=== PATIENT | female | born 1940 | race Caucasian/White ===

== ENCOUNTER 2017-12-25 11:47 | Emergency (ER) | payer MEDICARE, BC ==
[2017-12-25] MEDS ORDERED: traMADol HCl 50 MG TAB ONE (12:06)
[2017-12-25] MEDS ORDERED: Ibuprofen 800 MG TAB ONE (12:57)
--- NOTE | 2017-12-25 14:27 | ULT ---
VENOUS DOPPLER ULTRASOUND OF THE RIGHT LOWER EXTREMITY: Date: 12/25/17 HISTORY: Right leg edema and pain. TECHNIQUE: Read scale ultrasound with color flow and spectral Doppler imaging of the deep venous system of the r ight lower extremity is performed. FINDINGS: There is good flow, compression, and augmentation noted in the right common femoral, femoral, deep fe moral, popliteal, posterior tibial, and greater saphenous veins. IMPRESSION: No evidence of deep venous thrombosis in the right lower extremity. POS: [facility]
== END 2017-12-25 13:15 | disposition home or self-care (01) ==
LOC: ERS 11:47
DX: M79.661 Pain in right lower leg (principal); M51.36 Other intervertebral disc degeneration, lumbar region; L40.50 Arthropathic psoriasis, unspecified; G20 Parkinson's disease; G30.9 Alzheimer's disease, unspecified; I50.9 Heart failure, unspecified; E03.9 Hypothyroidism, unspecified; E78.5 Hyperlipidemia, unspecified; F31.9 Bipolar disorder, unspecified; Z79.899 Other long term (current) drug therapy

== ENCOUNTER 2018-03-15 10:14 | Observation (INO) | payer MEDICARE, BC ==
[2018-03-15] MEDS ORDERED: ISOVUE-370 76%-LOCM 1 ML ONE (10:21)
[2018-03-15] MEDS ORDERED: Ondansetron PF 4 MG/2 ML Vial ONE (11:26)
[2018-03-15 11:27] LABS: #Lymphocytes 0.8 thou/uL (1.20-3.40); #Monocytes 0.6 thou/uL (0.11-0.59); #Neutrophils 15.2 thou/uL (1.40-6.50); %Basophils 0.1 % (0.0-1.0); %Eosinophils 0.2 % (0.0-10.0); %Lymphocytes 4.6 % (21.0-51.0); %Monocytes 3.6 % (0.0-10.0); %Neutrophils 91.5 % (42.0-75.0); Hemoglobin 13.8 g/dL (12.0-16.0); Mean Corpuscular HGB CONC 30.4 g/dL (32.0-36.0); Mean Corpuscular Hemoglobin 27.1 pg (27.0-31.0); Mean Corpuscular Volume 89.2 fL (78.0-98.0); Mean Platelet Volume 7.4 fL (7.4-10.4); Platelet Count 304 thou/uL (130-400); RBC Distribution Width 14.5 % (11.5-14.5); White Blood Cell (WBC) Count 16.6 thou/uL (4.8-10.8)
--- NOTE | 2018-03-15 11:31 | RAD ---
PORTABLE CHEST 1 VIEW: Date: 03/15/18 Time: 1104 hours HISTORY: Weakness. FINDINGS: Comparison made with exam of 08/27/12. The heart size is normal. There is continued elevation of the right hemidiaphragm. No lobar consolida tion, pneumothoraces, or pleural effusions are seen. IMPRESSION: No acute process. POS: [facility]
[2018-03-15 11:35] LABS: INR-International Normal Ratio 0.9; PTT 37.7 SEC (22.9-36.1); Prothrombin Time 12.6 SEC (12.0-14.7)
[2018-03-15 11:52] LABS: ALT (SGPT) 20 U/L (8-55); AST (SGOT) 14 U/L (5-34); Albumin 4.2 g/dL (3.4-4.8); Alkaline Phosphatase 151 U/L (40-150); Anion Gap 14 mmol/L (10-20); BUN (Urea Nitrogen) 28 mg/dL (9.8-20.1); Bilirubin, Total 0.4 mg/dL (0.2-1.2); CK (CPK) 22 U/L (29-168); Calc. Creatinine Clearance 0 mL/min (70-130); Calcium 10.5 mg/dL (7.8-10.44); Carbon Dioxide 25 mmol/L (23-31); Chloride 105 mmol/L (98-107); Estimated GFR-MDRD 35; Globulin 2.9 g/dL (2.4-3.5); Glucose 114 mg/dL (83-110); Lipase 21 U/L (8-78); Potassium 4.5 mmol/L (3.5-5.1); Protein, Total 7.1 g/dL (6.0-8.3); Sodium 139 mmol/L (136-145)
--- NOTE | 2018-03-15 12:23 | CT ---
CT ABDOMEN AND PELVIS WITH IV CONTRAST: History: Abdominal pain. Vomiting. Comparison: 06-01-09 FINDINGS: Mild scarring at the lung bases. Gallbladder is surgically absent. Liver is diffusely hypodense. Calc ified granulomata within the spleen. Calcification within the arterial structures. Retroaortic left r enal vein. Degenerative changes lumbar spine. Urinary bladder is decompressed. Lack of oral contrast limits evaluation of the bowel. No evidence of obstruction or inflammation. IMPRESSION: 1. No evidence of bowel obstruction or other acute abnormalities. 2. Atherosclerosis. 3. Hepatosteatosis. 4. Status post cholecystectomy. POS: [facility]
[2018-03-15] MEDS ORDERED: Zolpidem Tartrate 5 MG TAB PO PRN (13:22)
[2018-03-15] MEDS ORDERED: Ondansetron PF 4 MG/2 ML Vial IVP PRN (13:22)
[2018-03-15 14:20] LABS: Bilirubin Negative (Negative); Blood, Urine Negative (Negative); Clarity CLEAR (Clear); Glucose, Urine (Dipstick) Negative (Negative); Leukocyte Negative (Negative); Nitrite Negative (Negative); Protein, Urine (Dipstick) Negative (Neg-Trace); Specific Gravity, Urine 1.027 (1.002-1.036); Urobilinogen 0.2 mg/dL (0.2-1.0)
--- NOTE | 2018-03-15 14:27 | HP ---
PRIMARY CARE PROVIDER: Milo Tracey DO HISTORY OF PRESENT ILLNESS: Referred to [facility] by [facility]. The patient woke up this morning, weak, and disoriented. Her speech was slurred. She had nausea and vomiting 2 times. It was described as a brown color. She went to the bathroom, was too weak to get off the commode by herself. She had no diarrhea. No bowel movement at all. No abdominal pain. She was a bit lightheaded with the present illness. She presented at the emergency room for evaluation PAST MEDICAL HISTORY: Parkinson syndrome, hypothyroidism, bipolar syndrome, and psoriatic arthritis. MEDICATIONS: 1. [place] carbonate 300 mg twice a day. 2. Memantine 10 mg a day. 3. Levothyroxine 150 mcg a day. 4. Selegiline 5 mg a day. 5. Donepezil 10 mg a day. 6. Sinemet 25/100 three times a day. ALLERGIES: NO MEDICAL ALLERGIES. PAST SURGICAL HISTORY: Cholecystectomy and hysterectomy. FAMILY HISTORY: She had diabetes in the grandchild and niece. SOCIAL HISTORY: The patient is . Daughter is at bedside, next of kin is surrogate decision maker. The patient states she is DNR. Daughter agrees. She does not smoke or drink alcohol. REVIEW OF SYSTEMS: GENERAL: No fevers, sweats, or chills. No fainting. EYES: No double vision, blurred vision, or flashing lights. EAR, NOSE, AND THROAT: No nose bleeding. No trouble swallowing. CHEST: No chest pain or shortness of breath. No cough, wheezing, or asthma. GASTROINTESTINAL: See present illness. GENITOURINARY: She is incontinent, wears Depend. MUSCULOSKELETAL: No swelling or pain in her legs. NEUROLOGICAL: No strokes, seizures, or focal weakness. PSYCHIATRIC: She has bipolar syndrome, controlled on medications. SKIN: No bruising, bleeding, or rash. HEME/LYMPH: No tender or swollen lymph nodes in the axilla, inguinal, cervical area. PHYSICAL EXAMINATION: VITAL SIGNS: Initially, blood pressure 182/79, pulse 117, respirations 19, temperature 98; currently, blood pressure 139/77, pulse 82, and respirations 21. HEAD, EYES, EARS, NOSE, AND THROAT: Revealed pupils are equal, round, and reactive to light. Extraocular movements are intact. Sclerae white. Tympanic membranes clear. Nose is clear. Throat is clear. NECK: No jugular venous distention, adenopathy, or thyromegaly. CHEST: Clear to auscultation and percussion. HEART: Regular rate and rhythm. First and second heart sounds are clear. There are no murmurs or gallops. ABDOMEN: Soft. Bowel sounds are normal. There is no hepatosplenomegaly. No mass. No rebound or bruits. EXTREMITIES: Reveal no cyanosis, clubbing, or edema. PULSES: Carotid, radial, femoral, and dorsalis pedis pulses intact and symmetric. SKIN: Warm and dry without bruises or rash. HEME/LYMPH: No tender or swollen lymph nodes in the axilla, inguinal, and cervical area. NEUROLOGICAL: Cranial nerves 2 through 12 are intact. Moves all extremities. Sensations intact. IMAGING STUDIES: EKG; regular sinus rhythm, right bundle branch block, reviewed by myself. Chest x-ray, reviewed by myself, no cardiomegaly, CHF, or infiltrate. CT abdomen and pelvis, no acute abnormality. LABORATORY DATA: White count elevated at 16.6, hemoglobin 13.8, platelet count 304,000. Lytes balanced. BUN 28, creatinine 1.46, calcium 10.5, alkaline phosphatase 151, CK 21. ADMITTING DIAGNOSES: Nausea and vomiting, weakness, Parkinson's, bipolar syndrome, psoriatic arthritis, chronic kidney disease versus acute kidney injury. PLAN: IV fluids, antiemetics. Repeat CBC at 5 o'clock today and in the morning. Repeat basic metabolic profile tomorrow morning. Check lithium level. The patient will be admitted on an observation. Job ID: [id number]
[2018-03-15] MEDS ORDERED: Carbidopa/Levodopa 25-100 mg Tablet PO SCH (15:00)
[2018-03-15 17:23] LABS: #Eosinphils 0.1 thou/uL (0.0-0.7); #Lymphocytes 1.2 thou/uL (1.20-3.40); #Neutrophils 12.4 thou/uL (1.40-6.50); %Basophils 0.3 % (0.0-1.0); %Eosinophils 0.5 % (0.0-10.0); %Lymphocytes 8.1 % (21.0-51.0); %Monocytes 6.9 % (0.0-10.0); %Neutrophils 84.2 % (42.0-75.0); Hemoglobin 13.4 g/dL (12.0-16.0); Mean Corpuscular HGB CONC 31.2 g/dL (32.0-36.0); Mean Corpuscular Hemoglobin 27.9 pg (27.0-31.0); Mean Corpuscular Volume 89.5 fL (78.0-98.0); Mean Platelet Volume 7.6 fL (7.4-10.4); Platelet Count 288 thou/uL (130-400); RBC Distribution Width 14.4 % (11.5-14.5); White Blood Cell (WBC) Count 14.8 thou/uL (4.8-10.8)
[2018-03-15] MEDS: Sodium Chloride 0.9% 1,000 ML IV SCH (17:26)
[2018-03-15] MEDS: Carbidopa/Levodopa 10-100 mg Tablet PO SCH (20:19)
[2018-03-15] MEDS ORDERED: Donepezil HCl 10 MG TAB PO SCH (21:00)
[2018-03-15] MEDS ORDERED: Lithium Carbonate 150 MG CAP PO SCH (21:00)
[2018-03-16] MEDS: Sodium Chloride 0.9% 1,000 ML IV SCH ×2 (00:01→10:59)
[2018-03-16] MEDS: Acetaminophen 325 MG TAB PO PRN ×2 (00:01→09:01)
[2018-03-16 05:33] LABS: #Eosinphils 0.3 thou/uL (0.0-0.7); #Lymphocytes 2.1 thou/uL (1.20-3.40); #Monocytes 1.2 thou/uL (0.11-0.59); #Neutrophils 10.3 thou/uL (1.40-6.50); %Basophils 0.3 % (0.0-1.0); %Eosinophils 1.8 % (0.0-10.0); %Lymphocytes 15.4 % (21.0-51.0); %Monocytes 8.4 % (0.0-10.0); %Neutrophils 74.1 % (42.0-75.0); Hemoglobin 12.1 g/dL (12.0-16.0); Mean Corpuscular HGB CONC 31.7 g/dL (32.0-36.0); Mean Corpuscular Hemoglobin 28.8 pg (27.0-31.0); Mean Corpuscular Volume 90.8 fL (78.0-98.0); Mean Platelet Volume 7.4 fL (7.4-10.4); Platelet Count 262 thou/uL (130-400); RBC Distribution Width 14.5 % (11.5-14.5); White Blood Cell (WBC) Count 13.8 thou/uL (4.8-10.8)
[2018-03-16 05:50] LABS: Anion Gap 10 mmol/L (10-20); BUN (Urea Nitrogen) 23 mg/dL (9.8-20.1); Calc. Creatinine Clearance 52 mL/min (70-130); Calcium 9.2 mg/dL (7.8-10.44); Carbon Dioxide 23 mmol/L (23-31); Chloride 113 mmol/L (98-107); Estimated GFR-MDRD 43; Glucose 97 mg/dL (83-110); Potassium 4.4 mmol/L (3.5-5.1); Sodium 142 mmol/L (136-145)
[2018-03-16] MEDS ORDERED: Levothyroxine 150 MCG TAB PO SCH ×2 (06:00→09:00)
[2018-03-16] MEDS ORDERED: Aspirin 81 mg Enteric Coated Tablet PO SCH (09:00)
[2018-03-16] MEDS: Carbidopa/Levodopa 10-100 mg Tablet PO SCH (09:01)
--- NOTE | 2018-03-16 09:46 | PDOC.PN ---
- Subjective Encounter Start Date: 03/16/18 Encounter Start Time: 09:42 - Objective Resuscitation Status - Order Detail: 03/15/18 13:29 Resuscitation Status Routine Resuscitation Status: DNAR: NO Resuscitation Discussed with: confirmed with patiet and daughter, sedrick DIOP Reviewed: Yes Vital Signs & Weight: Vital Signs (12 hours) Temp Pulse Resp BP BP Pulse Ox 03/16/18 09:40 159/64 H 03/16/18 08:00 98.1 F 91 20 176/82 H 95 03/16/18 04:00 98.5 F 90 20 154/72 H 96 03/16/18 00:00 98.5 F 97 20 131/75 98 Weight Weight 186 lb 5 oz I&O: 03/15/18 03/16/18 03/17/18 06:59 06:59 06:59 Intake Total 240 Balance 240 Result Diagrams: 03/16/18 05:01 03/16/18 05:01 Dx/Plan - Plan * .
--- NOTE | 2018-03-16 10:33 | DIS ---
DATE OF ADMISSION: 03/15/2018 DATE OF DISCHARGE: 03/16/2018 TRANSFER OF CARE PRIMARY CARE PROVIDER: Dr. Bernardo Tracey. DISPOSITION: Discharged home. FINAL DIAGNOSES: 1. Nausea and vomiting, resolved. 2. Weakness, resolved. 3. Parkinson disease. 4. Chronic kidney disease stage 3. DISCHARGE MEDICATIONS: Same as her home medications. 1. Aspirin 81 mg a day. 2. Sinemet 10/100 three times a day. 3. Vitamin D 3000 units a day. 4. B12 of 1000 mcg a day. 5. Donepezil 10 mg a day. 6. Synthroid 150 mcg a day. 7. [place] carbonate 300 mg p.o. b.i.d. 8. Namenda 10 mg a day. 9. Selegiline 5 mg a day. ALLERGIES: NO KNOWN DRUG ALLERGIES. CODE STATUS: DNAR. PENDING AT TIME OF DISCHARGE: Nothing. HOSPITAL COURSE: The patient presented to the emergency room with nausea, vomiting, and profound weakness. She was referred to the [facility]. She was treated with IV fluids and antiemetics. She feels fine today. Her initial laboratory showed a white count of 16.6, is dropped to 13.8 this morning. No left shift. No neutrophilia. Hemoglobin 13.8 initially, 12.1 today. Creatinine was 1.46 with a BUN of 28 on admission, it has dropped to 1.21 with a BUN of 23. Her history includes chronic kidney disease stage 3, which she has had. Her abdomen is benign. Her vital signs are stable. She is desirous of going home. No consultations. No procedure. She has been asked to follow up with Dr. Tracey in 7 days. Job ID: [id number]
[2018-03-16 11:34] VITALS: BP 137/75; TEMP 97.9
== END 2018-03-16 14:53 | disposition home or self-care (01) ==
LOC: ERS 10:14 → T4-B 13:19
PROVIDERS: ADMIT Internal Medicine; ATTEND Internal Medicine
DX: R11.2 Nausea with vomiting, unspecified (principal); R53.1 Weakness; G20 Parkinson's disease; N18.3 Chronic kidney disease, stage 3 (moderate); E03.9 Hypothyroidism, unspecified; F31.9 Bipolar disorder, unspecified; L40.50 Arthropathic psoriasis, unspecified; I70.90 Unspecified atherosclerosis; Z66 Do not resuscitate; Z79.82 Long term (current) use of aspirin; Z79.899 Other long term (current) drug therapy
CPT/HCPCS: 51701; 71045; 74177; 80048; 80053; 80178; 81003; 82550; 83605; 83690; 84484 ×2; 85025 ×3; 85610; 85730; 86850; 86900; 86901; 93005; 96361 ×3; 96374; 99285; G0378 ×2; 36415; A4353; J2405; Q9966

== ENCOUNTER 2021-02-01 22:59 | Inpatient (IN) | payer MEDICARE, BC ==
[2021-02-02 00:23] LABS: #Basophils 0.1 thou/uL (0.0-0.2); #Eosinphils 0.6 thou/uL (0.0-0.7); #Lymphocytes 2.5 thou/uL (1.20-3.40); #Monocytes 1.8 thou/uL (0.11-0.59); #Neutrophils 13.8 thou/uL (1.40-6.50); %Basophils 0.4 % (0.0-1.0); %Eosinophils 3.2 % (0.0-10.0); %Lymphocytes 13.1 % (21.0-51.0); %Monocytes 9.5 % (0.0-10.0); %Neutrophils 73.7 % (42.0-75.0); Hemoglobin 11.3 g/dL (12.0-16.0); Mean Corpuscular HGB CONC 31.7 g/dL (32.0-36.0); Mean Corpuscular Hemoglobin 26.3 pg (27.0-31.0); Mean Corpuscular Volume 83.1 fL (78.0-98.0); Mean Platelet Volume 8.1 fL (7.4-10.4); Platelet Count 330 thou/uL (130-400); RBC Distribution Width 16.4 % (11.5-14.5); White Blood Cell (WBC) Count 18.7 thou/uL (4.8-10.8)
[2021-02-02 00:50] LABS: Bilirubin Negative (Negative); Blood, Urine Negative (Negative); Clarity Clear (Clear); Glucose, Urine (Dipstick) Normal (Negative); Ketone, Urine Negative (Negative); Leukocyte Negative Leu/uL (Negative); Nitrite Negative (Negative); Protein, Urine (Dipstick) Negative (Neg-Trace); Specific Gravity, Urine 1.009 (1.002-1.036); Urobilinogen Normal mg/dL (Less than 2)
[2021-02-02 01:51] LABS: ALT (SGPT) Less than 7 U/L (8-55); AST (SGOT) 10 U/L (5-34); Albumin 3.7 g/dL (3.4-4.8); Alkaline Phosphatase 156 U/L (40-110); Anion Gap 12 mmol/L (10-20); BUN (Urea Nitrogen) 20 mg/dL (9.8-20.1); Bilirubin, Total 0.2 mg/dL (0.2-1.2); Calc. Creatinine Clearance 0 mL/min (70-130); Carbon Dioxide 22 mmol/L (23-31); Chloride 107 mmol/L (98-107); Globulin 3.1 g/dL (2.4-3.5); Glucose 130 mg/dL (83-110); Potassium 4.2 mmol/L (3.5-5.1); Protein, Total 6.8 g/dL (5.8-8.1); Sodium 137 mmol/L (136-145)
[2021-02-02] MEDS ORDERED: Vancomycin 1 GM/200 ML BAG ONE (02:21)
[2021-02-02] MEDS ORDERED: diphenhydrAMINE 25 MG CAP ONE (02:21)
[2021-02-02] MEDS ORDERED: Clindamycin/D5W 300 MG in Premix Bag 1 BAG IVPB SCH (02:30)
[2021-02-02 04:01] VITALS: BMI 29.3
[2021-02-02 12:42] LABS: SARS-CoV-2 PCR by NAA Not Detected (NotDetected)
[2021-02-02] MEDS ORDERED: Ondansetron PF 4 MG/2 ML Vial IVP PRN (14:13)
[2021-02-02] MEDS: Carbidopa/Levodopa 25-100 mg Tablet PO SCH ×2 (17:16→20:05)
[2021-02-02] MEDS: Lithium Carbonate 150 MG CAP PO SCH (17:20)
[2021-02-02] MEDS: Sodium Chloride 0.9% 1,000 ML IV SCH (17:21)
[2021-02-02] MEDS: Donepezil HCl 10 MG TAB PO SCH (20:04)
[2021-02-02] MEDS ORDERED: Melatonin 3 MG TAB PO PRN (22:37)
[2021-02-03] MEDS: Sodium Chloride 0.9% 1,000 ML IV SCH ×3 (04:03→20:27)
[2021-02-03] MEDS: Levothyroxine Sodium 100 MCG TAB PO SCH (05:14)
[2021-02-03] MEDS: Liothyronine Sodium 25 MCG TAB PO SCH (05:35)
[2021-02-03 06:50] LABS: #Basophils 0.1 thou/uL (0.0-0.2); #Eosinphils 0.6 thou/uL (0.0-0.7); #Lymphocytes 2.5 thou/uL (1.20-3.40); #Monocytes 1.3 thou/uL (0.11-0.59); #Neutrophils 9.4 thou/uL (1.40-6.50); %Basophils 0.6 % (0.0-1.0); %Eosinophils 4.6 % (0.0-10.0); %Lymphocytes 17.9 % (21.0-51.0); Hemoglobin 11.1 g/dL (12.0-16.0); Mean Corpuscular HGB CONC 30.8 g/dL (32.0-36.0); Mean Corpuscular Hemoglobin 25.8 pg (27.0-31.0); Mean Corpuscular Volume 83.7 fL (78.0-98.0); Mean Platelet Volume 8.6 fL (7.4-10.4); Platelet Count 267 thou/uL (130-400); RBC Distribution Width 16.4 % (11.5-14.5); White Blood Cell (WBC) Count 13.9 thou/uL (4.8-10.8)
[2021-02-03 07:08] LABS: Anion Gap 10 mmol/L (10-20); BUN (Urea Nitrogen) 21 mg/dL (9.8-20.1); Calc. Creatinine Clearance 39 mL/min (70-130); Calcium 9.7 mg/dL (7.8-10.44); Carbon Dioxide 23 mmol/L (23-31); Chloride 111 mmol/L (98-107); Glucose 123 mg/dL (83-110); Potassium 4.4 mmol/L (3.5-5.1); Sodium 140 mmol/L (136-145)
[2021-02-03] MEDS: Lithium Carbonate 150 MG CAP PO SCH ×2 (10:04→17:24)
[2021-02-03] MEDS: Aspirin 81 mg Enteric Coated Tablet PO SCH (10:04)
[2021-02-03] MEDS: Enoxaparin Sodium 40 MG/0.4 ML SYRINGE SC SCH (10:05)
[2021-02-03] MEDS: Carbidopa/Levodopa 25-100 mg Tablet PO SCH ×3 (10:05→20:27)
[2021-02-03] MEDS ORDERED: Amlodipine 5 MG TAB PO SCH (13:30)
[2021-02-03] MEDS: Acetaminophen 325 MG TAB PO PRN (20:26)
[2021-02-03] MEDS: Zolpidem Tartrate 5 MG TAB PO PRN (20:27)
[2021-02-03] MEDS: Donepezil HCl 10 MG TAB PO SCH (20:27)
[2021-02-04] MEDS: Levothyroxine Sodium 100 MCG TAB PO SCH (05:30)
[2021-02-04] MEDS: Liothyronine Sodium 25 MCG TAB PO SCH (05:30)
[2021-02-04] MEDS ORDERED: Amlodipine 5 MG TAB PO SCH (09:00)
[2021-02-04] MEDS: Lithium Carbonate 150 MG CAP PO SCH ×2 (09:43→17:28)
[2021-02-04] MEDS: Carbidopa/Levodopa 25-100 mg Tablet PO SCH ×3 (09:44→20:04)
[2021-02-04] MEDS: Enoxaparin Sodium 40 MG/0.4 ML SYRINGE SC SCH (09:46)
[2021-02-04] MEDS: Aspirin 81 mg Enteric Coated Tablet PO SCH (09:46)
[2021-02-04] MEDS: Sodium Chloride 0.9% 1,000 ML IV SCH (20:03)
[2021-02-04] MEDS: Donepezil HCl 10 MG TAB PO SCH (20:05)
[2021-02-04] MEDS: Acetaminophen 325 MG TAB PO PRN (20:10)
[2021-02-04] MEDS: Zolpidem Tartrate 5 MG TAB PO PRN (20:10)
[2021-02-04] MEDS ORDERED: Labetalol HCl 100 MG/20 ML VIAL SLOW IVP SCH (21:45)
[2021-02-05] MEDS: Levothyroxine Sodium 100 MCG TAB PO SCH (05:33)
[2021-02-05] MEDS: Liothyronine Sodium 25 MCG TAB PO SCH (05:33)
[2021-02-05] MEDS ORDERED: hydrALAZINE 20 MG/ML VIAL SLOW IVP PRN (05:54)
[2021-02-05 07:05] LABS: #Basophils 0.1 thou/uL (0.0-0.2); #Eosinphils 1.1 thou/uL (0.0-0.7); #Lymphocytes 2.6 thou/uL (1.20-3.40); #Monocytes 1.5 thou/uL (0.11-0.59); %Basophils 0.4 % (0.0-1.0); %Eosinophils 6.6 % (0.0-10.0); %Lymphocytes 15.9 % (21.0-51.0); %Monocytes 9.1 % (0.0-10.0); Hemoglobin 11.2 g/dL (12.0-16.0); Mean Corpuscular HGB CONC 31.3 g/dL (32.0-36.0); Mean Corpuscular Hemoglobin 26.1 pg (27.0-31.0); Mean Corpuscular Volume 83.3 fL (78.0-98.0); Mean Platelet Volume 8.3 fL (7.4-10.4); Platelet Count 280 thou/uL (130-400); RBC Distribution Width 16.5 % (11.5-14.5); White Blood Cell (WBC) Count 16.1 thou/uL (4.8-10.8)
[2021-02-05 07:23] LABS: Anion Gap 10 mmol/L (10-20); BUN (Urea Nitrogen) 17 mg/dL (9.8-20.1); Calc. Creatinine Clearance 42 mL/min (70-130); Carbon Dioxide 24 mmol/L (23-31); Chloride 112 mmol/L (98-107); Glucose 131 mg/dL (83-110); Potassium 4.8 mmol/L (3.5-5.1); Sodium 141 mmol/L (136-145)
[2021-02-05] MEDS ORDERED: Amlodipine 10 MG TAB PO SCH (09:00)
[2021-02-05] MEDS ORDERED: FLU VACC QS2021-22(65YR UP)/PF 240 MCG/0.7 ML SYRINGE IM ONE (09:00)
[2021-02-05] MEDS: Enoxaparin Sodium 40 MG/0.4 ML SYRINGE SC SCH (09:27)
[2021-02-05] MEDS: Aspirin 81 mg Enteric Coated Tablet PO SCH (09:28)
[2021-02-05] MEDS: Lithium Carbonate 150 MG CAP PO SCH (09:28)
[2021-02-05] MEDS: Carbidopa/Levodopa 25-100 mg Tablet PO SCH (09:28)
[2021-02-05 11:49] VITALS: BP 175/76; TEMP 98.7
[2021-02-05] MEDS ORDERED: Cephalexin 250 MG CAP PO SCH (12:00)
== END 2021-02-05 13:16 | DRG 71 ==
LOC: ERS 22:59 → T4-B 02-02 02:23
PROVIDERS: ADMIT Internal Medicine; ATTEND Internal Medicine
DX: G93.41 Metabolic encephalopathy (principal); I13.0 Hypertensive heart and chronic kidney disease with heart failure and stage 1 through stage 4 chronic kidney disease, or unspecified chronic kidney disease; L89.152 Pressure ulcer of sacral region, stage 2; Z20.822 Contact with and (suspected) exposure to COVID-19; G20 Parkinson's disease; G30.9 Alzheimer's disease, unspecified; F02.80 Dementia in other diseases classified elsewhere, unspecified severity, without behavioral disturbance, psychotic disturbance, mood disturbance, and anxiety; E03.9 Hypothyroidism, unspecified; E78.5 Hyperlipidemia, unspecified; F31.9 Bipolar disorder, unspecified; R62.7 Adult failure to thrive; G47.00 Insomnia, unspecified; I50.9 Heart failure, unspecified; N18.30 Chronic kidney disease, stage 3 unspecified; Z79.899 Other long term (current) drug therapy; Z79.890 Hormone replacement therapy; Z79.82 Long term (current) use of aspirin; Z90.49 Acquired absence of other specified parts of digestive tract; Z90.710 Acquired absence of both cervix and uterus; Z68.29 Body mass index [BMI] 29.0-29.9, adult
CPT/HCPCS: 36415; 70450; 71045; 80048; 80053; 80178; 81003; 84145; 85025; 86140; 87040; 87086; 96365; J0360; J1650; J3370; J3490; J7050; U0003; U0005